=== PATIENT | female | born 1960 | race Caucasian/White ===

== ENCOUNTER 2024-08-25 13:46 | Outpatient (CLI) | payer BC, SELFPAY ==
--- NOTE | 2024-08-25 13:53 | MR_ITS ---
WS: [id number] MRI BRAIN/ORBITS WITH AND WITHOUT CONTRAST. COMPARISON: None Multiplanar, multisequence imaging is performed with and without contrast. MultiHance 11 mL. Normal diffusion imaging. No acute ischemic changes. Very minimal volume loss and small vessel diseas e within the brain. No prior infarct. No hemorrhage. No midline shift or mass effect. Ventricles are normal. High-resolution imaging through the orbits and globes is obtained. Optic nerves are symmetric. There is a very small amount of fluid around the optic nerve sheaths which is considered normal. There is n o enhancement. No enlargement or atrophy of the nerves or extraocular muscles. No exophthalmos. No ex traocular muscle atrophy. Normal appearance of the infundibulum and the optic chiasm. Suspicious for an area of nonenhancement within the pituitary gland seen best on the postcontrast jocelyne ges measuring 6 x 4 mm. Normal flow voids. No enhancing masses within the brain. Mild mucoperiosteal thickening in the posterior sphenoid sinus. Mastoid air cells are clear. MR/MR orbit face neck wo/w* [id number] IMPRESSION: 1. Normal CT of the orbits and globes. Normal appearance of the optic nerve. 2. Area of nonenhancement within the central pituitary gland measures 6 x 4 mm . Suspicious for a pituitary microadenoma. Recommend dedicated MRI pituitary gl and with and without contrast in 3 months for follow-up. 3. Sphenoid sinus disease.
[2024-08-25] MEDS: gadobenate dimeglumine 20 mL vial 11 ML IV (15:24)
== END 2024-08-25 13:47 | disposition home or self-care (01) ==
LOC: RAD 13:49
PROVIDERS: PCP Internal Medicine; Visit Provider Nurse Practitioner Family
DX: H57.12 Ocular pain, left eye (principal); R93.0 Abnormal findings on diagnostic imaging of skull and head, not elsewhere classified; J32.3 Chronic sphenoidal sinusitis
CPT/HCPCS: 70543

== ENCOUNTER 2024-12-09 08:53 | Outpatient (CLI) | payer BC, SELFPAY ==
--- NOTE | 2024-12-09 08:56 | MR_ITS ---
WS: [id number] MRI HEAD WITH CONTRAST WITH PITUITARY PROTOCOL TECHNIQUE: Sagittal T1, T2 axial, T2 axial FLAIR, axial susceptibility weighted imaging, axial diffus ion weighted images, and coronal T2 images were obtained. Pre and post-T1 axial and post T1 coronal i mages. ADC and FSPGR images. Pituitary protocol utilized CLINICAL INFORMATION: (D35.2) COMPARISON: MRI 08/25/2024 FINDINGS: 4-5 mm hypoenhancing focus in the LEFT pituitary suspicious for microadenoma best seen on the dynamic pituitary images. Recommend correlation with pituitary function studies. This appears stable compare d to previous. No evidence of suprasellar mass. Normal optic chiasm and pituitary infundibulum. No other acute findings. No evidence of restricted diffusion to suggest acute ischemia. Ventricular s ystem and basal cisterns are patent. Mild small vessel changes. No significant parenchymal volume los s. No hemosiderin on susceptibility-weighted images. Normal posterior fossa. Normal vascular flow voi ds at the skull base. No extra-axial fluid collections. No mass of mass or mass effect. Paranasal sin uses and mastoid air cells are well aerated. Tiny incidental benign venous angioma RIGHT parietal lob e near the vertex MR/MR pituitary wo/w con* [id number] IMPRESSION: 1. Stable 4-5 mm hypoenhancing focus in the LEFT pituitary suspicious for micr oadenoma best seen on the dynamic pituitary imaging 2. Recommend correlation with pituitary function studies. 3. No evidence of suprasellar extension. 4. Normal optic chiasm and pituitary infundibulum. 5. No other acute findings.
[2024-12-09] MEDS: gadobenate dimeglumine 20 mL vial 11 ML IV (09:59)
== END 2024-12-09 08:54 | disposition home or self-care (01) ==
LOC: RAD 08:54
PROVIDERS: PCP Nurse Practitioner Family; Visit Provider Nurse Practitioner Family
DX: D35.2 Benign neoplasm of pituitary gland (principal); R93.89 Abnormal findings on diagnostic imaging of other specified body structures
CPT/HCPCS: 70553; A9577

== ENCOUNTER 2024-12-12 08:03 | Outpatient (CLI) | payer BC, SELFPAY ==
--- NOTE | 2024-12-12 08:05 | MR_ITS ---
WS: [id number] MRI orbits without and with gadolinium enhancement. TECHNIQUE: Noncontrast axial T1, axial T2 FSE fat sat, coronal T2 fat sat, coronal T1, coronal T1 fat sat, sagittal T2 fat sat, plus contrast enhanced coronal, sagittal, and axial T1 fat sat images obta ined. CLINICAL INFORMATION: LEFT EYE PAIN COMPARISON: MRI 12/09/2024 FINDINGS: No evidence of restricted diffusion to suggest acute ischemia. Ventricular system and basilar cistern s are patent. Normal posterior fossa. Normal vascular flow voids at the skull base. No extra-axial fl uid collections. No evidence of mass or mass effect. Paranasal sinuses are well aerated. Mild mucosal thickening in the mastoid air cells. Normal posterior nasopharynx. Normal optic chiasm and pituitary infundibulum. Optic nerves are normal in appearance. No evidence of optic neuritis. No evidence of optic nerve edema. Normal visualized rectus muscles. No other acute f indings. MR/MR orbit face neck wo/w* [id number] IMPRESSION: 1. Normal optic chiasm and pituitary infundibulum. 2. Normal visualized rectus muscles. 3. Optic nerves are normal in appearance. No evidence of optic nerve edema or optic neuritis. 4. No other acute findings.
[2024-12-12] MEDS: gadobenate dimeglumine 20 mL vial 11 ML IV (09:03)
== END 2024-12-12 08:04 | disposition home or self-care (01) ==
LOC: RAD 08:04
PROVIDERS: PCP Nurse Practitioner Family; Visit Provider Nurse Practitioner Family
DX: H57.12 Ocular pain, left eye (principal); R93.89 Abnormal findings on diagnostic imaging of other specified body structures
CPT/HCPCS: 70543

== ENCOUNTER → 2024-12-17 10:06 | Outpatient (BNVA) | payer MEDICARE, BC, SELFPAY | PROVIDERS: PCP Nurse Practitioner Family; Referring Provider Nurse Practitioner Family; Visit Provider Psychiatry & Neurology Neurology | DX: D49.7 Neoplasm of unspecified behavior of endocrine glands and other parts of nervous system (principal); H57.12 Ocular pain, left eye | CPT/HCPCS: 99203 ==

== ENCOUNTER → 2025-03-12 08:41 | Outpatient (BNVA) | payer MEDICARE, BC, SELFPAY | PROVIDERS: PCP Nurse Practitioner Family; Visit Provider Internal Medicine | DX: D35.2 Benign neoplasm of pituitary gland (principal); R51.9 Headache, unspecified; M81.0 Age-related osteoporosis without current pathological fracture | CPT/HCPCS: 99204 ==

== ENCOUNTER 2025-03-23 07:26 | Outpatient (CLI) | payer MEDICARE, BC, SELFPAY ==
[2025-03-23 08:41] LABS: Calcium 9.4 mg/dL (8.5-10.5); Parathyroid Hormone 47.4 pg/mL (15-65)
[2025-03-23 08:48] LABS: Alanine Aminotransferase 10 U/L (0-33); Albumin Level 4.3 g/dL (3.5-5.2); Alkaline Phosphatase 44 U/L (35-105); Aspartate Amino Transferase 9 U/L (0-32); Blood Urea Nitrogen 14 mg/dL (8-23); Calcium 9.2 mg/dL (8.5-10.5); Carbon Dioxide 29 mmol/L (22-29); Chloride 102 mmol/L (98-107); Globulin 2.6 g/dL (1.3-4.6); Glomerular Filtration Rate 100.3 mL/min (90-130); Glucose 96 mg/dL (65-115); Osmolality Calculated 294 mOsm/kg (285-295); Phosphorus 2.9 mg/dL (2.5-4.5); Sodium 142 mmol/L (136-145); Thyroid Stimulating Hormone 1.79 uIU/mL (0.27-4.20); Total Bilirubin 0.3 mg/dL (0.15-1.2); Total Protein 6.9 g/dL (6.6-8.7)
[2025-03-23 08:51] LABS: 25 Hydroxy Vitamin D 54 ng/mL (30-100)
[2025-03-23 09:17] LABS: Cortisol Random 14.84 ug/dL (2.47-19.5); Free T4 Free Thyroxine 1.28 ng/dL (0.82-1.77)
== END 2025-03-23 07:27 | disposition home or self-care (01) ==
PROVIDERS: PCP Nurse Practitioner Family; Visit Provider Internal Medicine
DX: M81.0 Age-related osteoporosis without current pathological fracture (principal); D35.2 Benign neoplasm of pituitary gland
CPT/HCPCS: 36415; 80053; 82306; 82310; 82533; 83970; 84100; 84146; 84305; 84439; 84443

== ENCOUNTER → 2025-03-25 14:52 | Outpatient (BNVA) | payer MEDICARE, BC, SELFPAY | PROVIDERS: PCP Nurse Practitioner Family; Visit Provider Psychiatry & Neurology Neurology | DX: H57.12 Ocular pain, left eye (principal) | CPT/HCPCS: 99212 ==